=== PATIENT | female | born 1960 | race Two or more races ===

== ENCOUNTER 2025-08-13 13:33 | Outpatient (AMB) | payer MEDICAID, SELFPAY ==
--- NOTE | 2025-08-13 14:11 | ORTHONT_ITS ---
Vital signs 08/13/25 14:12 Height 1.5 m Height Method Measured Weight 80.002 kg Weight Measurement Method Standing Scale BMI 35.5 BP 131/77 H Blood Pressure Source Automatic Cuff Blood Pressure Location Left Upper Arm Position Sitting Respiration 16 Pulse 92 Pulse Source Monitor Temp 97.1 F Temp Source Temporal Artery Scan Pulse Oximetry (%) 96 Oxygen Delivery Method Room Air Med/Allergies Allergies & Medications Allergies No Known Allergies Allergy (Verified 08/13/25 14:13) Medication Reconciliation No Known Home Medications 08/13/25 [History Confirmed 08/13/25] Exam Exam Patient is in no acute distress and is cooperative with the examination today. Breathing is nonlabored. In no respiratory distress. Bilateral extremities were evaluated and demonstrates sensation intact to light touch. Palpable pedal pulses are present. No significant edema is present. Bilateral hips were examined. The patient has no pain with log roll of the hips. Internal rotation to 30 degrees and external rotation to 30 degrees is painless. Negative FADIR. The left knee was examined. The left knee is in varus alignment. Range of motion from 0-115 degrees. Knee is stable to varus and valgus as well as AP translation with <5mm. Patient has a negative McMurrays. There is no pain with patellofemoral compression and no crepitus noted. The knee is tender to palpation medially. The right knee was also examined. The right knee is in varus alignment. Range of motion from 0-120 degrees. Knee is stable to varus and valgus as well as AP translation with <5mm. Patient has a negative McMurrays. There is no pain with patellofemoral compression and no crepitus noted. The knee is tender to palpation medially. X-ray report demonstrates [id number] arthritis according to the report. I physically cannot see them and we will order weightbearing x-rays Assessment and Plan Problem List (1) Degenerative arthritis of knee, bilateral: Status: Acute Plan: HISTORY OF PRESENT ILLNESS I, Aric Gandhi, have obtained verbal consent from the patient, to be recorded during this encounter which may include, but not limited to, medical history, examination, treatment plans, and relevant health information.? Patient was informed that recording will be read and reviewed by myself before inclusion in the medical chart. The patient presents today with bilateral knee pain that she has been experiencing for over 8 years. She is accompanied by an store stock help. She most recently had x-rays completed at [facility]. She had one injection approximately 3 years ago, which did not help at all. Physical therapy has not been tried, and meloxicam still helps. She reports persistent discomfort in both knees, with the left knee being more problematic than the right. Her mobility is significantly compromised, limiting her to walking only two blocks. She was previously informed of the necessity for a knee replacement during her stay in [place], a recommendation that has been echoed by other healthcare professionals. Her current treatment regimen includes meloxicam and acetaminophen. Office Procedures GNS Level of Care Nursing/Assessment Patient Status: Initial/New Patient Nursing Assessment/Reassesment: Medication Reconciliation, Update PMH in EMR and Vital Signs Coordination of Care: Complex Care and Chronic Disease 1-5, Education Complex Pt/Fam, Consent,records obtained, informed consent, Lab and Imaging orders, Results/Orders obtained and Staff clarify orders Special Needs: Language special needs New Patient Charge New Patient Point Assignment: [id number] New Patient Point Charge: LAUNDRY PRICING CLERK Level 3 (0451-5999) MA Intake Visit Data Collection New Patient or Established: New Patient (never been to [facility]) Reason for Visit:: OSTEOARTHRITIS BILATERAL KNEE Seen by Clinical Staff ONLY (RN/MA): No [employer] Required: Yes PCP or OBGYN visit in last 3 months: Yes Hx Now: No Do You Feel Safe at Home: Yes Authorities Contacted: N/A Questionairres Past Medical History Past Medical History Have you ever been diagnosed with any of the following: Subjective Visit Visit for: new patient and knee Immunization / Flu Flu Vaccine in the Last 12 Months: Yes Flu Vaccine Exclusion Criteria: Already Received History of Present Illness Chief complaint: OSTEOARTHRITIS BILATERAL KNEE Date of injury / onset of symptoms: 8 YEARS HISTORY OF PRESENT ILLNESS I, Aric Hiram, have obtained verbal consent from the patient, to be recorded during this encounter which may include, but not limited to, medical history, examination, treatment plans, and relevant health information.? Patient was informed that recording will be read and reviewed by myself before inclusion in the medical chart. The patient presents today with bilateral knee pain that she has been experiencing for over 8 years. She is accompanied by an store stock help. She most recently had x-rays completed at [facility]. She had one injection approximately 3 years ago, which did not help at all. Physical therapy has not been tried, and meloxicam still helps. She reports persistent discomfort in both knees, with the left knee being more problematic than the right. Her mobility is significantly compromised, limiting her to walking only two blocks. She was previously informed of the necessity for a knee replacement during her stay in [place], a recommendation that has been echoed by other healthcare professionals. Her current treatment regimen includes meloxicam and acetaminophen. Personal History Occupation: HOUSEWIFE Red flag PMH: none BMI Counceling provided: Yes Pain Pain level (0-10): 10 Pain location: inside (medial), outside (lateral) and posterior Pain quality: sharp, dull, aching, burning, shocking, electric and tingling Pain timing: increases with activity and stairs Associated signs & symptoms: numbness, weakness and stiffness Ambulatory data Ambulatory device: none Walking distance (blocks): 2 Treatments Number of previous injections: 1 Improvement with previous injections: No Number of Physical Therapy sessions: 0 Improvement with PT: No Improvement with NSAIDS: yes (MELOXICAM) Review of Systems Review of Systems: All systems negative unless otherwise noted in HPI.
[2025-08-13 14:12] VITALS: BP 131/77; PULSE 92; RESP 16; TEMP 36.2; O2SAT 96; BMI 35.5
--- NOTE | 2025-08-13 14:24 | XR_ITS ---
EXAMINATION: Bilateral knees 2 views Right lateral knee left lateral knee 2 views Bilateral Axuni single view TECHNIQUE: Bilateral AP knees standing single view Bilateral PA knees standing single view flexion Standing right lateral knee left lateral knee 2 views Bilateral Axuni single view total 5 views INDICATIONS: Bilateral knee pain 10 years worse involving the left knee FINDINGS: Severe narrowing medial joint spaces bilaterally [id number] narrowing medial joint space left knee Advanced osteoarthritis patellofemoral joints bilaterally more severe left knee No fractures No patellar dislocations IMPRESSION: Severe narrowing medial joint spaces bilaterally Advanced osteoarthritis patellofemoral joints bilaterally
== END 2025-08-13 14:32 | disposition home or self-care (01) ==
PROVIDERS: PCP Physician Assistant Medical; Referring Provider Physician Assistant Medical; Supervising Provider Orthopaedic Surgery Adult Reconstructive Orthopaedic Surgery; Visit Provider Orthopaedic Surgery Adult Reconstructive Orthopaedic Surgery
DX: M17.0 Bilateral primary osteoarthritis of knee (principal); M25.562 Pain in left knee; M25.561 Pain in right knee
CPT/HCPCS: 73564; 99203; G0463

== ENCOUNTER 2025-08-23 09:23 | Outpatient (AMB) | payer MEDICAID, SELFPAY ==
[2025-08-23 09:40] VITALS: BP 110/69; PULSE 87; RESP 18; TEMP 36.3; O2SAT 95; BMI 35.5
--- NOTE | 2025-08-23 09:40 | ORTHONT_ITS ---
Vital signs 08/23/25 09:40 Height 1.5 m Height Method Stated Weight 79.974 kg Weight Measurement Method Standing Scale BMI 35.5 BP 110/69 Blood Pressure Source Automatic Cuff Blood Pressure Location Right Upper Arm Position Sitting Respiration 18 Pulse 87 Pulse Source Monitor Temp 97.4 F Temp Source Temporal Artery Scan Pulse Oximetry (%) 95 Oxygen Delivery Method Room Air Med/Allergies Allergies & Medications Allergies No Known Allergies Allergy (Verified 08/23/25 09:41) Medication Reconciliation No Known Home Medications 08/13/25 [History Confirmed 08/23/25] Exam Exam Patient is in no acute distress and is cooperative with the examination today. Breathing is nonlabored. In no respiratory distress. Bilateral extremities were evaluated and demonstrates sensation intact to light touch. Palpable pedal pulses are present. No significant edema is present. Bilateral hips were examined. The patient has no pain with log roll of the hips. Internal rotation to 30 degrees and external rotation to 30 degrees is painless. Negative FADIR. The left knee was examined. The left knee is in varus alignment. Range of motion from 0-115 degrees. Knee is stable to varus and valgus as well as AP translation with <5mm. Patient has a negative McMurrays. There is no pain with patellofemoral compression and no crepitus noted. The knee is tender to palpation medially. The right knee was also examined. The right knee is in varus alignment. Range of motion from 0-120 degrees. Knee is stable to varus and valgus as well as AP translation with <5mm. Patient has a negative McMurrays. There is no pain with patellofemoral compression and no crepitus noted. The knee is tender to palpation medially. Bilateral knee x-rays demonstrate complete joint space narrowing medially with varus deformity and arthritis Assessment and Plan Problem List (1) Degenerative arthritis of knee, bilateral: Status: Acute Plan: HISTORY OF PRESENT ILLNESS Jigar is a 65 yo female with significant bilateral knee oa. She reports persistent discomfort in both knees, with the left knee being more problematic than the right. She has tried conservative treatment including injections and meloxicam. Her mobility is significantly compromised, limiting her to walking only two blocks. She was previously informed of the necessity for a knee replacement during her stay in [place], a recommendation that has been echoed by other healthcare professionals. Her current treatment regimen includes meloxicam and acetaminophen. We thus discussed a TKA on the left as a reasonable option. The nature and purpose of the total knee replacement, alternative method(s) of treatment, the material risks involved, and the possibility of complications were fully explained to the patient. The patient does NOT have any of the following contraindications to TKA: - Active infection of the knee joint, OR - Active systemic bacteremia, OR - Active skin infection or open wound at surgical site, OR - Neuropathic arthritis, OR - Severe, rapidly progressive neurological disease, OR - Severe medical condition that makes risks of surgery outweigh the potential benefit. ?The patient was told the most common risks and complications associated with a total knee replacement include, but are not limited to: blood clots in the leg, stiffness, fatal pulmonary embolism, dislocation of the prosthesis, intraoperative and postoperative fractures of the femur or tibia, infection, failure of the prosthesis or grafting materials, complications from anesthesia, reactions to blood transfusions, postoperative leg length inequality, instability of the knee replacement, nerve damage or injury, vascular injury, delayed wound healing, infection, other injury or even . In addition, there are risks associated with anesthesia given during this operation. Also, the patient was told that after undergoing a total knee replacement there may still be persistent pain or disability. The patient was informed that the success of this operation in part depends upon the mechanical devices which are going to be implanted and that these devices can fail or malfunction, and may need to be repaired or replaced and there are no guarantees as to the longevity of this device or its parts and that it or its parts could fail prematurely. The importance of compliance with physical therapy was also discussed with the patient. The patient was also notified that during the course of surgery, there may be a need to use bone graft from donors, and that any bone graft used will be carefully screened for communicable diseases, including AIDS, hepatitis, Chris-Creutzfeldt, or other diseases, but despite the screening procedures, there is a small chance that they could contract one of these diseases. Finally, the patient was asked to follow completely and fully with all advice and recommended treatments, and that recovery and ultimate outcome are affected by their compliance with recommended treatment. We discussed the risks, benefits and treatment alternatives, and the patient is interested in proceeding with surgery. We will try to set this up as expeditiously as possible. Office Procedures GNS Level of Care Nursing/Assessment Patient Status: Established Patient Nursing Assessment/Reassesment: Medication Reconciliation, Update PMH in EMR and Vital Signs Coordination of Care: Complex Care and Chronic Disease 1-5, Education Complex Pt/Fam, Consent,records obtained, informed consent, 2-3 Insurance Autorizations needed, Lab and Imaging orders, Results/Orders obtained and Staff clarify orders Established Patient Charge Established Patient Point Assignment: 130 Established Patient Point Charge: EP Level 4 (120-155) MA Intake Visit Data Collection New Patient or Established: Established Patient (seen at [facility] within 3 years) Reason for Visit:: F/U XRAYS Seen by Clinical Staff ONLY (RN/MA): No Verbal consent obtained for Telemed visit?: No Questionairres Past Medical History Past Medical History Have you ever been diagnosed with any of the following: Subjective Visit Visit for: new patient and knee Immunization / Flu Flu Vaccine in the Last 12 Months: Yes Flu Vaccine Exclusion Criteria: Already Received History of Present Illness Chief complaint: OSTEOARTHRITIS BILATERAL KNEE Date of injury / onset of symptoms: 8 YEARS HISTORY OF PRESENT ILLNESS I, Aric Gandhi, have obtained verbal consent from the patient, to be recorded during this encounter which may include, but not limited to, medical history, examination, treatment plans, and relevant health information.? Patient was informed that recording will be read and reviewed by myself before inclusion in the medical chart. The patient presents today with bilateral knee pain that she has been experi encing for over 8 years. She is accompanied by an backup sawyer. The knee pain is worse on the left. She had one injection approximately 3 years ago, which did not help at all. Physical therapy has not been tried, and meloxicam still helps. She reports persistent discomfort in both knees, with the left knee being more problematic than the right. Her mobility is significantly compromised, limiting her to walking only two blocks. She was previously informed of the necessity for a knee replacement during her stay in [place], a recommendation that has been echoed by other healthcare professionals. Her current treatment regimen includes meloxicam and acetaminophen. Personal History Occupation: HOUSEWIFE Red flag PMH: none BMI Counceling provided: Yes Pain Pain level (0-10): 10 Pain location: inside (medial), outside (lateral) and posterior Pain quality: sharp, dull, aching, burning, shocking, electric and tingling Pain timing: increases with activity and stairs Associated signs & symptoms: numbness, weakness and stiffness Ambulatory data Ambulatory device: none Walking distance (blocks): 2 Treatments Number of previous injections: 1 Improvement with previous injections: No Number of Physical Therapy sessions: 0 Improvement with PT: No Improvement with NSAIDS: yes (MELOXICAM) Review of Systems Review of Systems: All systems negative unless otherwise noted in HPI.
== END 2025-08-23 09:50 | disposition home or self-care (01) ==
LOC: HODSRG 09:23
PROVIDERS: PCP Physician Assistant Medical; Referring Provider Physician Assistant Medical; Supervising Provider Orthopaedic Surgery Adult Reconstructive Orthopaedic Surgery; Visit Provider Orthopaedic Surgery Adult Reconstructive Orthopaedic Surgery
DX: M17.0 Bilateral primary osteoarthritis of knee (principal)
CPT/HCPCS: 99214; G0463